=== PATIENT | male | born 1975 | race African-American/Black ===

== ENCOUNTER 2020-05-24 06:37 | Outpatient (CLI) | payer OTHER, MEDICAID, SELFPAY ==
--- NOTE | ~2020-05-24 | MR_ITS ---
EXAMINATION: MR thoracic spine wo con EXAM DATE: 05/24/2020 07:42 INDICATION: Cervical thoracic spondylosis. TECHNIQUE: Multi-sequential, multiplanar MR images of the thoracic spine were obtained without contra st. Sagittal T1, T2, T2 fat saturation, axial T2 weighted images reviewed. There is no prior study for comparison. FINDINGS: The vertebral bodies are aligned in the AP dimension. Vertebral body and disc heights are well-maintained. There are no suspicious marrow signal abnormalities. Paraspinal soft tissue is unrem arkable. The spinal cord signal intensity and intrinsic morphology is normal. Thoracic neural foramen and central canal widely patent. IMPRESSION: Unremarkable CT thoracic spine. Reviewed, dictated and finalized at location B.
== END 2020-05-24 06:38 | disposition home or self-care (01) ==
PROVIDERS: PCP Emergency Medicine; Visit Provider Emergency Medicine
DX: M47.893 Other spondylosis, cervicothoracic region (principal)
CPT/HCPCS: 72146

== ENCOUNTER 2020-06-29 12:12 | Emergency (ER) | payer MEDICAID, SELFPAY ==
[2020-06-29] VITALS (13 sets, daily range): BP systolic 122–149; BP diastolic 64–91; PULSE 57–70; RESP 12–20; TEMP 36.6; O2SAT 97–100
--- NOTE | ~2020-06-29 | CT_ITS ---
EXAMINATION: CT abdomen pelvis w con DATE: 06/29/2020 13:25 INDICATION: Abdominal pain. TECHNIQUE: Computed tomography (CT) of the abdomen and pelvis was performed with 100 mL Omnipaque 350 intravenous contrast. Automated exposure control and iterative reconstruction technique were employe d. The dose-length product was 630.01 mGy-cm. COMPARISON: None. FINDINGS: The visualized portions of the lung bases demonstrate mild atelectasis. Calcified right kayleen g nodules and calcified right hilar and mediastinal lymph nodes are consistent with old granulomatous disease. No pleural effusion. The heart size is normal. No pericardial effusion. The liver and gallb ladder are normal. Calcifications in the spleen are consistent with old granulomatous disease. The pa ncreas, adrenal glands, and kidneys are normal. There are no dilated loops of bowel. The appendix is normal. There are no pathologically enlarged lymph nodes. There is no free intraperitoneal fluid. The re is thoracolumbar dextroscoliosis and mild spondylosis. IMPRESSION: 1. No etiology for the patient's symptoms. Reviewed, dictated and finalized at location A.
--- NOTE | 2020-06-29 12:34 | ED.ABDPAIN ---
HPI - Abdominal Pain General Chief Complaint: Abdominal Pain Stated Complaint: abd pain Time Seen by Provider: 06/29/20 12:31 History of Present Illness HPI narrative: Pt c/o abd pain, epigastric, discomfort, non radiating, 07/15, started since . Denies n/v/d. Denies cp, sob, urinary symptoms or fever. Associated symptoms: denies other symptoms Related Data Allergies Allergy/AdvReac Type Severity Reaction Status Date / Time No Known Allergies Allergy Verified 06/29/20 12:27 Review of Systems Review of Systems: All systems reviewed & are unremarkable except as noted in HPI and below Constitutional: Constitutional: Denies body ache(s), Denies chills, Denies excessive sweating, Denies fatigue, Denies fever(s), Denies headache(s), Denies lethargy, Denies malaise, Denies weakness and Denies weight loss Eyes: Eyes: Denies blurry vision, Denies change in vision and Denies loss of vision ENT: Denies dizziness, Denies ear discharge, Denies headache(s), Denies lip swelling, Denies epistaxis, Denies nasal congestion, Denies neck pain, Denies throat swelling and Denies tongue swelling Cardiovascular: Cardiovascular: Denies chest pain, Denies chest pain at rest, Denies chest pain with activity, Denies diaphoresis, Denies rapid heart rate, Denies edema, Denies irregular heart rhythm, Denies lightheadedness, Denies palpitations, Denies dyspnea and Denies dyspnea on exertion Respiratory: Respiratory: Denies chest congestion, Denies cough, Denies hemoptysis, Denies dyspnea and Denies dyspnea on exertion Gastrointestinal: Gastrointestinal: Denies melena, Denies hematochezia, Denies diarrhea, Denies nausea, Denies vomiting and Denies hematemesis Musculoskeletal: Musculoskeletal: Denies abnormal gait, Denies deformity, Denies joint swelling, Denies limited range of motion, Denies neck pain and Denies numbness Neurologic: Denies Abnormal speech present, Denies abnormal gait, Denies confusion, Denies dizziness, Denies headache(s), Denies focal weakness, Denies loss of vision, Denies numbness, Denies Other visual disturbances, Denies Sensory deficit (Neuro) and Denies weakness Psychiatric: Psychiatric: Denies confusion, Denies depression, Denies auditory hallucinations, Denies homicidal ideation and Denies suicidal ideation Endocrine: Endocrine: Denies cold intolerance, Denies excessive sweating, Denies fatigue, Denies heat intolerance and Denies palpitations Hematologic/Lymphatic: Hematologic/Lymphatic: Denies easy bleeding and Denies easy bruising Allergic/Immunologic: Allergic/Immunologic: Denies lip swelling, Denies throat swelling and Denies tongue swelling Exam Const: General: cooperative, healthy appearing, comfortable, no acute distress, well developed, alert and awake; No confusion Orientation/consciousness: oriented to person, oriented to place, oriented to time, patient oriented x3 and No confusion Limitations: no limitations HENMT: Head: normal to inspection, normocephalic and atraumatic Ears: hearing grossly normal bilaterally, TM normal on the right and TM normal on the left General nose exam: Normal external nose present, Normal nares present and No nasal discharge present Face and sinus: normal facial exam Mouth: Yes Normal oral and palatal mucosa present, Yes lip normal, Yes tongue normal and Yes oropharynx normal Throat: posterior oropharynx normal, tonsils normal and uvula midline Eyes: General: appearance normal, both eyes and all related structures Pupils: Equal, round and reactive pupils present EOM: EOMs intact bilaterally Neck: Neck: normal visual inspection, full ROM, no lymphadenopathy and no meningeal signs Chest: Chest palpation & inspection: normal inspection of the chest Resp: Effort & Inspection: normal respiratory effort, able to speak in complete sentences, no respiratory distress and not tachypneic Auscultation: clear to auscultation bilaterally, no crackles, no rales, no rhonchi and no wheezes Cardio:
--- NOTE | 2020-06-29 12:36 | ECG_ITS ---
Measurements Intervals [place] Rate: 56 P: 37 [place]: 172 QRS: 30 QRSD: 95 T: -12 QT: 412 QTc: 400 Interpretive Statements SINUS BRADYCARDIA BORDERLINE ST-T WAVE ABNORMALITY- ANT/INF LEADS BORDERLINE ECG Electronically Signed On 06-29-2020 18:46:02 CDT by Fidencio Castle D.O.
[2020-06-29] MEDS: SODIUM CHLORIDE 0.9% IV 1,000 ML 999 ML IV CONT (12:50)
[2020-06-29 13:03] LABS: Basophils Absolute Auto 0.1 K/mm3 (0.0-0.1); Basophils Percent Auto 1.4 % (0.2-1.2); Eosinophils Percent Auto 0.6 % (0-4.4); Hematocrit 47.2 % (42.0-52.0); Hemoglobin 15.4 g/dL (14.0-18.0); Immature Granulocyte Absolute 0.05 K/mm3 (0.00-0.031); Immature Granulocyte Percent A 0.8 % (0-0.5); Lymphocytes Absolute Auto 2.19 K/mm3 (0.9-3.2); Lymphocytes Percent Auto 33.5 % (18.3-44.2); Mean Corpuscular HGB Conc 32.6 g/dl (32-36); Mean Corpuscular Hemoglobin 28.9 pg (26-34); Mean Corpuscular Volume 88.6 fl (80-100); Mean Platelet Volume 9.5 fl (7.4-10.4); Monocytes Absolute Auto 0.6 K/mm3 (0.1-0.6); Monocytes Percent Auto 8.6 % (2.6-8.5); Neutrophils Absolute Auto 3.6 K/mm3 (1.3-6.7); Neutrophils Percent Auto 55.1 % (45.5-73.1); Platelet Count Result 311 k/mm3 (150-375); Red Blood Count 5.33 M/mm3 (4.6-6.20); Red Cell Distribution Width 13.8 % (11.5-14.5); White Blood Count 6.5 K/mm3 (4.5-10.0)
[2020-06-29 13:07] LABS: Add Urine Microscopic? YES; Appearance Urine Clear (Clear); Bilirubin Urine Negative (Negative); Blood Urine Negative (Negative); Color Urine Yellow (Yellow); Glucose Urine UA 1+ mg/dL (Negative); Ketones Urine Negative (Negative); Leukocyte Esterase Ur Trace LEU/UL (Negative); Mucus Urine Rare /lpf; Nitrate Urine Negative (Negative); Protein Urine 1+ mg/dL (Negative); RBC Urine 0-2 /hpf (0-2); Squamous Epithelial Cell Urine Occasional /hpf (Few); Urobilinogen Urine Negative mg/dL (<2.0)
[2020-06-29 13:15] LABS: Alanine Aminotransferase 28 U/L (4-50); Albumin Level 4.6 g/dL (3.5-5.1); Alkaline Phosphatase 92 U/L (38-126); Anion Gap 7 mmol/L (8-16); Aspartate Amino Transferase 32 U/L (17-59); Bilirubin,Total 0.6 mg/dL (0.2-1.3); Blood Urea Nitrogen 15 mg/dL (9-20); Calcium 9.2 mg/dL (8.4-10.2); Carbon Dioxide 27 mmol/L (22-30); Chloride 103 mmol/L (98-107); Estimated CRCL calculation 68 ml/min; Estimated Glomerular Filt Rate > 60; Glucose 112 mg/dL (75-110); Lipase 223 U/L (23-300); Potassium 4.3 mmol/L (3.4-5.0); Sodium 137 mmol/L (137-145)
[2020-06-29] MEDS: FAMOTIDINE 20 MG TABLET 40 MG PO (14:42)
[2020-06-29] MEDS: BELLADONNA ALK/PHENOB ELIX 10 ML, MAG HYDROX/ALUMINUM HYD/SIMETH 30 ML, LIDOCAINE HCL 2... PO (14:42)
[2020-06-29] MEDS: KETOROLAC 30 MG/ML VIAL (*BKC) IV PUSH (14:43)
== END 2020-06-29 15:52 | disposition home or self-care (01) ==
PROVIDERS: Emergency Provider Emergency Medicine; PCP Emergency Medicine
DX: K29.00 Acute gastritis without bleeding (principal); R00.1 Bradycardia, unspecified; R94.31 Abnormal electrocardiogram [ECG] [EKG]
CPT/HCPCS: 36415; 74177; 80053; 81001; 83690; 85025; 87086; 93005; 96361; 96374; 99284; A9270; J1885; J7030; Q9967

== ENCOUNTER 2021-12-25 22:09 | Emergency (ER) | payer BC, SELFPAY ==
[2021-12-25] VITALS (12 sets, daily range): BP systolic 124–198; BP diastolic 94–118; PULSE 54–71; RESP 13–21; TEMP 36.8; O2SAT 96–98
--- NOTE | ~2021-12-25 | XR_ITS ---
EXAMINATION: XR chest 1V portable EXAM DATE: 12/25/2021 22:57 INDICATION: Midsternal Cp X 5 Days Feels Like Heart Is Jumping . TECHNIQUE: Portable AP frontal chest x-ray was obtained. Comparison is made to prior examination from 02/05/2017. FINDINGS: The lungs are clear. There are no pleural effusions. The cardiomediastinal silhouette is within normal limits. There is no pneumothorax suspected. The bones and soft tissues are unremarkab le. IMPRESSION: No acute cardiopulmonary findings. Reviewed, dictated and finalized at location G.
--- NOTE | 2021-12-25 22:10 | ECG_ITS ---
Measurements Intervals [place] Rate: 60 P: 45 [place]: 154 QRS: 60 QRSD: 93 T: 20 QT: 392 QTc: 393 Interpretive Statements SINUS RHYTHM NORMAL ECG COMPARED TO ECG 06/29/2020 12:56:11 SINUS RHYTHM NOW PRESENT Electronically Signed On 12-26-2021 13:57:27 CDT by Huey Garcia M.D.
[2021-12-25] MEDS: ASPIRIN 81 MG CHEWABLE TABLET 324 MG PO (22:22)
[2021-12-25 22:26] LABS: Basophils Absolute Auto 0.1 K/mm3 (0.0-0.1); Basophils Percent Auto 1.1 % (0.2-1.2); Eosinophils Absolute Auto 0.2 K/mm3 (0-0.3); Eosinophils Percent Auto 2.4 % (0-4.4); Hemoglobin 15.5 g/dL (14.0-18.0); Immature Granulocyte Absolute 0.03 K/mm3 (0.00-0.031); Immature Granulocyte Percent A 0.4 % (0-0.5); Lymphocytes Absolute Auto 2.33 K/mm3 (0.9-3.2); Lymphocytes Percent Auto 32.8 % (18.3-44.2); Mean Corpuscular HGB Conc 33.7 g/dl (32-36); Mean Corpuscular Hemoglobin 29.5 pg (26-34); Mean Corpuscular Volume 87.6 fl (80-100); Mean Platelet Volume 9.1 fl (7.4-10.4); Monocytes Absolute Auto 0.6 K/mm3 (0.1-0.6); Neutrophils Absolute Auto 3.9 K/mm3 (1.3-6.7); Neutrophils Percent Auto 54.3 % (45.5-73.1); Platelet Count Result 303 k/mm3 (150-375); Red Blood Count 5.25 M/mm3 (4.6-6.20); Red Cell Distribution Width 12.8 % (11.5-14.5); White Blood Count 7.1 K/mm3 (4.5-10.0)
[2021-12-25 22:36] LABS: Partial Thromboplastin Time 27.2 SECONDS (22.3-36.8); Prothrombin Time 12.7 Seconds (11.1-14.7)
--- NOTE | 2021-12-25 22:36 | ED.CHESTPAIN ---
HPI - Chest Pain General Chief Complaint: Chest Pain Stated Complaint: chest pain Time Seen by Provider: 12/25/21 22:16 Source: patient Mode of arrival: ambulatory Limitations: no limitations History of Present Illness HPI narrative: 46-year-old male presents today with complaints of intermittent chest pain that can radiate to the back over the last 3 to 4 days. Patient states the pain is to his sternum. Pain currently rated an 8 out of a 10. Patient states the pain can happen intermittently. Pain can happen when he is bent over tying his shoes and then he stands up, or when he walks around the block. Patient has noted nothing specific to aggravate the pain or alleviate the pain. Patient has tried [place] and ibuprofen to help without relief. Patient with history of hypertension currently not on medications. Patient denies any nausea, vomiting, pain radiating to jaw or down the arm, or diaphoresis. Patient states it feels like what ever is underneath his sternum is balled up in a knot. Patient has a history of epigastric issues and was on Pepcid at one time. Patient states this pain is not similar to what he has felt in the past. Related Data Allergies Allergy/AdvReac Type Severity Reaction Status Date / Time No Known Allergies Allergy Verified 06/29/20 12:27 Review of Systems Review of Systems: CONSTITUTIONAL: Denies fever, chills, or sweats. EYES: Denies visual changes, redness, or discharge. ENT: Denies rhinorrhea, congestion, sore throat, or otalgia. CARDIOVASCULAR: Intermittent chest pain RESPIRATORY: Shortness of breath with some activities denies cough or dyspnea. GASTROINTESTINAL: Denies abdominal pain, nausea, vomiting, or diarrhea. GENITOURINARY: Denies dysuria or hematuria. SKIN: Denies rash or itching. MUSCULOSKELETAL: Denies back pain, joint pain, or myalgia. NEUROLOGIC: Denies headache, numbness, dizziness, or weakness. PSYCHIATRIC: Denies anxiety or depression. Exam Narrative: GENERAL: Well-appearing, well-nourished, and in no acute distress. HEAD: Normocephalic, atraumatic. EYES: PERRLA and EOMI. ENT: Nares clear, no rhinorrhea or epistaxis. Mucous membranes moist. Oropharynx without tonsillar hypertrophy exudate or other lesions. Bilateral TMs pearly hodge nonbulging NECK: Supple. No adenopathy or masses. No carotid bruits or JVD CHEST: Tenderness with palpation to sternum. Clear to auscultation. No respiratory distress. No wheezes rales or rhonchi HEART: Regular rate and rhythm. No murmur heard. Normal peripheral pulses. ABDOMEN: Soft, nontender, nondistended, normal active bowel sounds. EXTREMITIES: Normal range of motion. No edema. SKIN: Warm, dry, no rash. NEURO: No focal deficits. Alert and oriented x3. PSYCH: Normal mood and affect. Course Course Emergency Course: 46-year-old male presents today with complaints of chest pain that has been intermittent over the last couple days. Upon arrival pain 8 out of 10 with blood pressure 198/118. Patient medicated with aspirin and nitro. After 2 sublingual nitros patient pain-free. Case discussed with Dr. Jeff and had plan for admission. Patient refusing admission at this time. Patient AOx4. Long discussion had with patient and about the consequences of leaving AMA. Patient aware leaving AMA could result in , debilitation, stroke, sexual dysfunction. Patient still refusing to be admitted. Patient aware he can return at any time to be seen. Reevaluation(s) Reevaluation #1: Pain decreased from 8/10 to 4/10 after nitro. Date: 12/25/21 Time: 23:05 Reevaluation #2: Patient currently pain free after 2nd nitro. Date: 12/25/21 Time: 23:42 Vital Signs Vital signs: Vital Signs Temperature 36.8 C 12/25/21 22:22 Pulse Rate 71 12/25/21 22:22 Respiratory Rate 18 12/25/21 22:22 Blood Pressure 198/118 H 12/25/21 22:22 Pulse Oximetry 98 12/25/21 22:22 Temperature 36.8 C 12/25/21 22:22 Pulse Rate 54 L 12/25/21 23:55 Res
[2021-12-25 22:37] LABS: Alanine Aminotransferase 26 U/L (4-50); Albumin Level 4.6 g/dL (3.5-5.1); Alkaline Phosphatase 77 U/L (38-126); Anion Gap 9 mmol/L (8-16); Aspartate Amino Transferase 44 U/L (17-59); Bilirubin,Total 1.2 mg/dL (0.2-1.3); Blood Urea Nitrogen 16 mg/dL (9-20); Calcium 8.6 mg/dL (8.4-10.2); Carbon Dioxide 26 mmol/L (22-30); Chloride 104 mmol/L (98-107); Estimated CRCL calculation 69 ml/min; Estimated Glomerular Filt Rate > 60; Glucose 90 mg/dL (65-110); Lipase 321 U/L (23-300); Potassium 3.9 mmol/L (3.4-5.0); Sodium 139 mmol/L (137-145)
[2021-12-25] MEDS: NITROGLYCERIN SL 0.4 MG TABLET SUBLINGUAL ×2 (22:48→23:27)
[2021-12-25 22:49] LABS: Troponin I < 0.012 ng/mL (0.000-0.034)
== END 2021-12-26 00:20 | disposition left against medical advice (07) ==
PROVIDERS: Emergency Medicine; Emergency Provider Nurse Practitioner Family; PCP Emergency Medicine
DX: R07.9 Chest pain, unspecified (principal)
CPT/HCPCS: 36415; 71045; 80053; 83690; 84484; 85025; 85610; 85730; 93005; 99284; A9270

== ENCOUNTER 2021-12-26 15:52 | Emergency (ER) | payer BC, SELFPAY ==
[2021-12-26] VITALS (11 sets, daily range): BP systolic 160–188; BP diastolic 107–114; PULSE 51–62; RESP 11–24; TEMP 36.2; O2SAT 99–100
--- NOTE | ~2021-12-26 | CT_ITS ---
EXAMINATION: CTA chest PE protocol EXAM DATE: 12/26/2021 18:55 INDICATION: Chest pain . TECHNIQUE: Spiral CTA of the chest (pulmonary arteries) was performed with 100 cc Omnipaque 350 intr avenous contrast injection. Images were acquired during the pulmonary arterial phase. Coronal maxi mum intensity projection 3D-reconstructions were created by the technologist on dedicated workstation . Axial, coronal and sagittal reformatted images were reviewed. The dose-length product (DLP) for t his examination was 446.44 mGy-cm. The exposure was tailored according to patient size (auto mA exp osure control), and iterative reconstruction (ASIR) was used as additional dose reduction technique. There is no prior study for comparison. FINDINGS: Pulmonary arteries are well opacified and without intraluminal filling defects. No thora cic aortic dissection. The lungs are clear. There are no pleural or pericardial effusions. Trach eobronchial tree is patent. There is no mediastinal, hilar or axillary lymphadenopathy. There is no pneumothorax. Heart normal in size. No evidence of coronary arterial calcification. Upper abd omen is unremarkable. There is thoracic spondylosis without osteoblastic or osteolytic lesions iden tified. IMPRESSION: 1. No acute cardiopulmonary findings. Reviewed, dictated and finalized at location G.
--- NOTE | 2021-12-26 16:22 | ECG_ITS ---
Measurements Intervals [place] Rate: 54 P: 40 ID: 154 QRS: 53 QRSD: 95 T: 35 QT: 426 QTc: 404 Interpretive Statements SINUS BRADYCARDIA POSSIBLE RIGHT VENTRICULAR CONDUCTION DELAY [RSR (QR) IN V1/V2] NONSPECIFIC T-WAVE ABNORMALITY ABNORMAL ECG Electronically Signed On 12-26-2021 17:59:17 CDT by Huey Garcia M.D.
[2021-12-26 18:46] LABS: Estimated CRCL calculation 66 ml/min; Estimated Glomerular Filt Rate > 60
[2021-12-26 18:54] LABS: Basophils Absolute Auto 0.1 K/mm3 (0.0-0.1); Eosinophils Absolute Auto 0.1 K/mm3 (0-0.3); Eosinophils Percent Auto 1.7 % (0-4.4); Hematocrit 49.5 % (42.0-52.0); Hemoglobin 16.8 g/dL (14.0-18.0); Immature Granulocyte Absolute 0.05 K/mm3 (0.00-0.031); Immature Granulocyte Percent A 0.7 % (0-0.5); Lymphocytes Absolute Auto 1.93 K/mm3 (0.9-3.2); Lymphocytes Percent Auto 27.7 % (18.3-44.2); Mean Corpuscular HGB Conc 33.9 g/dl (32-36); Mean Corpuscular Hemoglobin 29.9 pg (26-34); Mean Corpuscular Volume 88.2 fl (80-100); Mean Platelet Volume 9.4 fl (7.4-10.4); Monocytes Absolute Auto 0.6 K/mm3 (0.1-0.6); Monocytes Percent Auto 8.9 % (2.6-8.5); Neutrophils Absolute Auto 4.2 K/mm3 (1.3-6.7); Platelet Count Result 310 k/mm3 (150-375); Red Blood Count 5.61 M/mm3 (4.6-6.20); Red Cell Distribution Width 12.9 % (11.5-14.5)
[2021-12-26 19:09] LABS: Prothrombin Time 12.5 Seconds (11.1-14.7)
[2021-12-26 19:10] LABS: Partial Thromboplastin Time 28.1 SECONDS (22.3-36.8)
[2021-12-26 19:11] LABS: Alanine Aminotransferase 29 U/L (4-50); Albumin Level 4.9 g/dL (3.5-5.1); Alkaline Phosphatase 84 U/L (38-126); Anion Gap 8 mmol/L (8-16); Aspartate Amino Transferase 53 U/L (17-59); Bilirubin,Total 1.5 mg/dL (0.2-1.3); Blood Urea Nitrogen 17 mg/dL (9-20); Calcium 8.9 mg/dL (8.4-10.2); Carbon Dioxide 29 mmol/L (22-30); Chloride 102 mmol/L (98-107); Estimated CRCL calculation 71 ml/min; Estimated Glomerular Filt Rate > 60; Glucose 106 mg/dL (65-110); Lipase 274 U/L (23-300); Potassium 3.9 mmol/L (3.4-5.0); Sodium 139 mmol/L (137-145)
[2021-12-26 19:20] LABS: Troponin I < 0.012 ng/mL (0.000-0.034)
--- NOTE | 2021-12-26 19:57 | ED.GENADULT ---
HPI - General Adult General Chief complaint: Recheck/Abnormal Lab/Rx Stated complaint: cp/md requests ct pulmonary Time Seen by Provider: 12/26/21 18:34 Source: patient, family, RN notes reviewed and old records reviewed Mode of arrival: ambulatory Limitations: no limitations History of Present Illness HPI narrative: 46-year-old male presented emerge department for evaluation of substernal chest pain. Patient states the pain has been ongoing for the last few days and is intermittent short lasting. Patient was evaluated in the emergency department last night and had negative serial troponins. Patient was offered admission at that time but declined admission and preferred to have follow-up with his primary care physician today. patient did have follow-up with his primary care physician and in addition to ordering outpatient stress test the physician also wanted the patient to return to the emergency department to have a CTA of his chest. CTA was performed and CTA was negative. Patient is still having intermittent pain which he describes as a pressure behind his sternum and indicates his gastrium as the site of the pressure. Patient states the pressure is relieved every time he drinks a glass of water. Patient does have a history of acid reflux but does not take any medications for GERD or acid reflux. Patient's primary care physician did start the patient on omeprazole and metoprolol today. Related Data Allergies Allergy/AdvReac Type Severity Reaction Status Date / Time No Known Allergies Allergy Verified 06/29/20 12:27 Review of Systems Review of Systems: CONSTITUTIONAL: Denies fever, chills, or sweats. EYES: Denies visual changes, redness, or discharge. ENT: Denies rhinorrhea, congestion, sore throat, or otalgia. CARDIOVASCULAR: Substernal chest pain that is short lasting and resolves with drinking water RESPIRATORY: Denies cough or dyspnea. GASTROINTESTINAL: Denies abdominal pain, nausea, vomiting, or diarrhea. GENITOURINARY: Denies dysuria or hematuria. SKIN: Denies rash or itching. MUSCULOSKELETAL: Denies back pain, joint pain, or myalgia. NEUROLOGIC: Denies headache, numbness, or weakness. All systems reviewed & are unremarkable except as noted in HPI and below Exam Narrative: APPEARANCE: Well appearing, no pain, no distress, well-nourished. HEAD: normocephalic, atraumatic. EYES: PERRLA/EOMI, conjunctivae clear. THROAT: Pharynx clear, no exudate. NECK: Supple. No adenopathy, no masses. RESPIRATORY: Airway patent, respirations nonlabored. Clear to auscultation bilaterally, no rales, rhonchi, wheezing. CARDIOVASCULAR: Regular rate and rhythm without murmurs rubs or gallops. ABDOMINAL: Soft, nontender, nondistended, normal bowel sounds MUSCULOSKELETAL: Moves all extremities. Strength/ROM intact, No edema, No calf tenderness. NEURO: Alert. Cranial nerves II through XII intact. Grossly normal neuro exam SKIN: Warm, dry. Normal Color Course Course Emergency Course: Patient was updated on the results of his work-up including imaging and labs. Patient's troponin continues to be negative. EKG shows normal sinus rhythm with no evidence of acute STEMI. CT scan showed no evidence pulmonary embolism. Patient was started on omeprazole by his primary care physician. Patient was encouraged to continue to have follow-up with his primary care physician in addition to having follow-up with a GI physician. Patient was also advised to drink water and to try Maalox to help with the suspected esophageal spasm. All questions concerns were addressed. Patient was educated on reasons to return to the emergency department. Patient and family were comfortable with the plan for discharge and close follow-up. Patient was started on both metoprolol and omeprazole by his primary care physician. Patient's blood pressure was elevated in the emergency department the patient prefers to go home and take his home dose of metoprolol. Vital Signs Vital signs: Vit
== END 2021-12-26 20:30 | disposition home or self-care (01) ==
PROVIDERS: Emergency Provider Emergency Medicine; PCP Emergency Medicine
DX: R07.9 Chest pain, unspecified (principal)
CPT/HCPCS: 71275; 80053; 83690; 84484; 85025; 85610; 85730; 93005; 99284; Q9967

== ENCOUNTER 2022-01-03 08:56 | Outpatient (CLI) | payer BC, SELFPAY ==
--- NOTE | 2022-01-03 | EST_ITS ---
Patient Info Name: Michael Egan Age: 46 years : 1975 Gender: Male Ht: 73 in Wt: 210 lbs BSA: 2.23 m2 HR: 58 bpm BP: 148 / 104 mmHg Heart Rhythm: Sinus Rhythm Exam Date: 01/03/2022 9:11 AM Exam Location: [facility] Stress Patient Status: Outpatient Admit Date: 01/03/2022 Staff Ordering Physician: Horacio Sanchez MD Attending Provider: Horacio Sanchez MD Exercise Technologist: Francesca Smith CT Exercise Physician: Fidencio Castle DO Exam Type: CA stress test treadmill Study Info Indications R07.9 - Chest pain, unspecified A treadmill exercise stress test was performed. Summary 1. 1. Negative Noe exercise stress test for ischemic ST changes by ECG criteria. 2. 2. Good functional capacity, achieving 12 METs of workload. 3. 3. Baseline hypertension with hypertensive response to exercise. 4. 4. Appropriate HR response to exercise. 5. 5. Appropriate HR recovery at 1 minute post exercise. 6. 6. No imaging with stress testing. 7. 7. Patient informed of the above results. Protocol: Noe Stress ECG Details Stage: REST Duration (min): 2 min : 23 sec Speed (mph): 0.0 Grade (%): 0 HR (bpm): 57 SBP (mmHg): 148 DBP (mmHg): 104 METS: --- Stage: REST Duration (min): 8 min : 23 sec Speed (mph): 0.0 Grade (%): 0 HR (bpm): 58 SBP (mmHg): 157 DBP (mmHg): 105 METS: --- Stage: STAGE 1 Duration (min): 1 min : 0 sec Speed (mph): 1.7 Grade (%): 10 HR (bpm): 87 SBP (mmHg): 157 DBP (mmHg): 105 METS: --- Stage: STAGE 1 Duration (min): 2 min : 0 sec Speed (mph): 1.7 Grade (%): 10 HR (bpm): 103 SBP (mmHg): 157 DBP (mmHg): 105 METS: --- Stage: STAGE 1 Duration (min): 3 min : 0 sec Speed (mph): 1.7 Grade (%): 10 HR (bpm): 108 SBP (mmHg): 169 DBP (mmHg): 94 METS: --- Stage: STAGE 2 Duration (min): 1 min : 0 sec Speed (mph): 2.5 Grade (%): 12 HR (bpm): 113 SBP (mmHg): 169 DBP (mmHg): 94 METS: --- Stage: STAGE 2 Duration (min): 2 min : 0 sec Speed (mph): 2.5 Grade (%): 12 HR (bpm): 116 SBP (mmHg): 168 DBP (mmHg): 95 METS: --- Stage: STAGE 2 Duration (min): 3 min : 0 sec Speed (mph): 2.5 Grade (%): 12 HR (bpm): 117 SBP (mmHg): 168 DBP (mmHg): 95 METS: --- Stage: STAGE 3 Duration (min): 1 min : 0 sec Speed (mph): 3.4 Grade (%): 14 HR (bpm): 120 SBP (mmHg): 198 DBP (mmHg): 120 METS: --- Stage: STAGE 3 Duration (min): 2 min : 0 sec Speed (mph): 3.4 Grade (%): 14 HR (bpm): 124 SBP (mmHg): 198 DBP (mmHg): 120 METS: --- Stage: STAGE 3 Duration (min): 3 min : 0 sec Speed (mph): 3.4 Grade (%): 14 HR (bpm): 129 SBP (mmHg): 203 DBP (mmHg): 112 METS: --- Stage: STAGE 4 Duration (min): 1 min : 0 sec Speed (mph): 4.2 Grade (%): 16 HR (bpm): 135 SBP (mmHg):
== END 2022-01-03 08:57 | disposition home or self-care (01) ==
LOC: ANHCARD 08:58
PROVIDERS: PCP Emergency Medicine; Visit Provider Emergency Medicine
DX: R07.9 Chest pain, unspecified (principal)
CPT/HCPCS: 93017

== ENCOUNTER 2022-10-21 17:14 | Emergency (ER) | payer OTHER, MEDICAID, SELFPAY | END 2022-10-21 17:23 | disposition left against medical advice (07) | LOC: ANHED 18:12 | PROVIDERS: PCP Emergency Medicine | DX: Z53.21 Procedure and treatment not carried out due to patient leaving prior to being seen by health care provider (principal) | CPT/HCPCS: 99199 ==

== ENCOUNTER 2023-02-02 23:30 | Emergency (ER) | payer OTHER, SELFPAY ==
--- NOTE | ~2023-02-02 | CT_ITS ---
Noncontrast CT scan of the thoracic and lumbar spine CLINICAL HISTORY: Trauma TECHNIQUE: Axial noncontrast imaging of the thoracic and lumbar spine was performed. Sagittal and cor onal reformatted images were constructed. Dose reduction technique was used on this scan by utilizing automated exposure control and iterative reconstruction technique. The dose-length product (DLP) was 1518.44 mGy-cm. Thoracic spine findings: No fracture or subluxation identified. Vertebral bodies maintain normal heig ht and alignment. Intervertebral disc spaces are well preserved. No definite spinal canal stenosis or cord compression identified. Paravertebral soft tissues are unre markable. Calcified mediastinal and hilar lymph nodes are noted. Lumbar spine findings: No fracture or subluxation identified. Vertebral bodies maintain normal height and alignment. Intervertebral disc spaces are well preserved. There are mild facet joint degenerative changes throughout the lumbar spine. No definite disc bulge o r herniation evident. No definite spinal canal stenosis identified. Neural foramina appear preserved. Paravertebral soft tissues are unremarkable. IMPRESSION: No significant abnormality seen in the thoracic or lumbar spine. Reviewed, dictated and finalized at [facility].
--- NOTE | ~2023-02-02 | XR_ITS ---
Left Knee Technique: AP, lateral, and oblique views were obtained. Clinical History: Pain Findings: No fracture or dislocation is seen. Osseous alignment is anatomic. Joint spaces are preserv ed without degenerative or erosive change. Soft tissues are unremarkable. No joint effusion is seen. Impression: Unremarkable left knee radiographs. Reviewed, dictated and finalized at location . Impression: Unremarkable left knee radiographs.
--- NOTE | ~2023-02-02 | XR_ITS ---
Right Knee Technique: AP, lateral, and oblique views were obtained. Clinical History: Pain Findings: No fracture or dislocation is seen. Osseous alignment is anatomic. Joint spaces are preserv ed without degenerative or erosive change. Large joint effusion is seen. Impression: Large joint effusion, nonspecific. No fracture or dislocation seen. Reviewed, dictated and finalized at location . Impression: Large joint effusion, nonspecific. No fracture or dislocation seen.
--- NOTE | ~2023-02-02 | CT_ITS ---
Noncontrast CT scan of the cervical spine Technique: Multiple contiguous axial [address] images of the cervical spine were obtained and rec onstructed in 2D sagittal and coronal planes on the acquisition scanner. Dose reduction technique was used on this scan by utilizing automated exposure control, adjustment of the mA and/or kV according to patient size. Clinical History: Pain Findings: No fractures or dislocations. Unremarkable visualized bony structures. The intervertebral disc spaces are preserved. No prevertebral soft tissue swelling. Impression: No fracture or subluxation of the cervical spine. Reviewed, dictated and finalized at location M. Impression: No fracture or subluxation of the cervical spine.
--- NOTE | 2023-02-02 23:50 | PC.NURSE ---
Addendum entered by Nohemy Plascencia RN 02/03/23 00:13: Pt got a dose of Dilaudid for pain. Assisted pt in calming down, pt became more relaxed and was able to tolerate CT scan. Original Note: In CT pt. had a panic attack, this RN along with 2 others arrived and reassured pt
--- NOTE | 2023-02-02 23:52 | ED.FALL ---
HPI - Fall General Chief Complaint: Fall Stated Complaint: fell 15-20 feet off ladder, pain to right knee Time Seen by Provider: 02/02/23 23:35 History of Present Illness HPI Narrative: Patient is a 47-year-old male presenting after a fall off a ladder. Patient states that he was on a 15 foot ladder trying to fix his daughter's dryer vent. Something startled him and so he jumped and fell forward off of the ladder. States that he landed on his knees on the balcony. States that he had severe right ankle and right knee pain following the fall. He was unable to ambulate due to the pain in his knee. Denies striking his head or loss of consciousness. No neck pain. He does complain of some mid back pain. Denies numbness or weakness. Reports some mild soreness in his left knee. No chest or abdominal pain. No shortness of breath. Related Data Allergies Allergy/AdvReac Type Severity Reaction Status Date / Time No Known Allergies Allergy Verified 02/02/23 23:41 Review of Systems Review of Systems: All systems reviewed & are unremarkable except as noted in HPI and below Exam Narrative: GENERAL: Uncomfortable appearing secondary to pain, pleasant and cooperative HEAD: Normocephalic, atraumatic. EYES: PERRLA and EOMI. ENT: Nares clear, no rhinorrhea or epistaxis. Mucous membranes moist. NECK/BACK: Supple. C-collar in place, no midline cervical tenderness, there is midline thoracic tenderness, no midline lumbar tenderness CHEST: Clear to auscultation. No respiratory distress. HEART: Regular rate and rhythm. Normal peripheral pulses. ABDOMEN: Soft, nontender, nondistended EXTREMITIES: Right knee with circumferential edema and ecchymoses anteriorly, diffusely tender especially along the medial aspect, superficial abrasions on the right calf, tenderness of right heel and right Achilles tendon; distal pulses are 2+, no sensory deficits, distal ROM intact SKIN: Warm, dry, no rash. NEURO: No focal deficits. Alert and oriented x3. PSYCH: Normal mood and affect. Course Vital Signs Vital signs: Vital Signs Pulse Rate 68 02/03/23 00:45 Respiratory Rate 15 02/03/23 00:45 Blood Pressure 157/94 H 02/03/23 00:45 Pulse Oximetry 94 02/03/23 00:45 Pulse Rate 72 02/03/23 02:01 Respiratory Rate 14 02/03/23 02:01 Blood Pressure 147/91 H 02/03/23 02:01 Pulse Oximetry 98 02/03/23 02:01 MDM - Fall MDM Narrative Medical decision making narrative: Patient is a 47-year-old male presenting with back, knee, ankle pain following a fall off a ladder. Patient is hypertensive, otherwise vitals are within normal limits. Exam is remarkable for the above. CT cervical, thoracic, lumbar spine show no acute injuries. X-rays of the right knee and ankle show no acute osseous injuries. There is a large right knee joint effusion. X-ray of left knee shows no acute abnormalities. Discussed the work-up with the patient. Offered to drain the joint effusion for symptomatic relief but patient declines at this time. He would prefer conservative management with knee immobilizer, crutches, pain control. Advised orthopedic and PCP follow-up. Appropriate return precautions given. Patient and his voiced understanding and are agreeable with plan. Discharged in stable condition Differential Diagnosis Differential diagnosis: Likely other (fall, spine fracture, femur fracture, patellar fracture, tib/fib fracture, joint effusion) Critical Care Time Critical Care Time Critical Care Time: No Discharge Plan Discharge Clinical Impression: Traumatic effusion of knee joint, Fall from ladder Patient Disposition: Home, Self-Care Condition: Stable Instructions: Antibiotic Form, Knee Immobilizer (ED), Hemarthrosis (ED) Additional Instructions: Imaging today shows fluid in your right knee that is likely related to your fall. Please use the crutches and knee immobilizer as discussed. Please follow-up with your PCP as well as o
[2023-02-03] MEDS: HYDROmorphone HCL INJ (*CRX) 1 MG/ML SYR IV PUSH
[2023-02-03 00:45] VITALS: BP 157/94; PULSE 68; RESP 15; O2SAT 94
[2023-02-03 01:04] VITALS: BP 151/88; PULSE 78; RESP 14; O2SAT 96
[2023-02-03 01:30] VITALS: BP 144/84; PULSE 75; RESP 16; O2SAT 94
[2023-02-03 02:01] VITALS: BP 147/91; PULSE 72; RESP 14; O2SAT 98
[2023-02-03] MEDS: HYDROcodone/acetaminophen (*CRX) 5-325 MG TABLET 1 TAB PO (02:17)
== END 2023-02-03 02:33 | disposition home or self-care (01) ==
PROVIDERS: Emergency Provider Emergency Medicine; PCP Emergency Medicine
DX: M25.469 Effusion, unspecified knee (principal); W11.XXXA Fall on and from ladder, initial encounter
CPT/HCPCS: 72125; 72128; 72131; 73564; 73610; 73630; 96374; 99284; A9270; J1170; L0140

== ENCOUNTER 2023-07-30 16:57 | Outpatient (CLI) | payer OTHER, SELFPAY ==
--- NOTE | ~2023-07-30 | US_ITS ---
EXAMINATION: US renal BI DATE: 07/30/2023 17:34 INDICATION: ABNORMAL RENAL FUNCTION TEST TECHNIQUE: Multiple grayscale and Doppler ultrasound images of the kidneys were obtained. COMPARISON: CT abdomen pelvis 06/29/2020 FINDINGS: The right kidney measures 9.4 x 4.2 x 5.6 cm. The left kidney measures 9.9 x 6.4 x 4.0 cm. The kidney s demonstrate normal parenchymal echogenicity. There is no hydronephrosis. The bladder is normal. Kannan ateral ureteral jets present. IMPRESSION: Unremarkable renal sonogram findings. Reviewed, dictated and finalized at location K.
== END 2023-07-30 16:58 | disposition home or self-care (01) ==
LOC: ANHIMG 16:59
PROVIDERS: PCP Emergency Medicine; Visit Provider Internal Medicine Nephrology
DX: R94.4 Abnormal results of kidney function studies (principal)
CPT/HCPCS: 76775

== ENCOUNTER 2024-03-31 00:30 | Day surgery (SDC) | payer BC, MEDICAID, SELFPAY ==
[2024-03-17 10:40] VITALS: BMI 29.0
[2024-03-31 12:21] VITALS: BP 155/49; PULSE 57; RESP 18; TEMP 36.1; O2SAT 100
[2024-03-31] MEDS: LACTATED RINGERS 1,000 ML 150 ML IV CONT (12:33)
--- NOTE | 2024-03-31 13:26 | P.PNAN_ITS ---
Anes - Initial Pre Proc Eval Procedure: Operation Date: 03/31/24 13:30 Proposed Procedures p Esophagogastroduodenoscopy - Eric Seaman MD Date/Time: 03/31/24 13:26 Surgeon: Eric Seaman MD Pre Op Diagnosis: GERD Patient Data Age: 48 Gender: M Height: 1.85 m Weight: 94.8 kg Last Vital Signs Temp 36.1 C L 03/31/24 12:21 Pulse 57 L 03/31/24 12:21 Resp 18 03/31/24 12:21 BP 155/49 H 03/31/24 12:21 Pulse Ox 100 03/31/24 12:21 O2 Del Method Room Air 03/31/24 12:21 Allergies Allergy/AdvReac Type Severity Reaction Status Date / Time No Known Allergies Allergy Verified 03/31/24 12:18 Home Medications Medication Instructions Recorded Confirmed Type hydrocodone 5 mg-acetaminophen 325 1 tablet PO Q8H PRN pain (scale 02/03/23 03/17/24 Rx mg tablet score 7-10) #10 tabs metoprolol succinate 25 mg 100 mg PO DAILY 05/01/23 03/17/24 History tablet,extended release 24 hr amlodipine 5 mg tablet 10 mg PO DAILY 03/17/24 03/17/24 History losartan 25 mg tablet 25 mg PO DAILY 03/17/24 03/17/24 History Patient hx anesthesia problems: none Family hx anesthesia problems: none Results Review: All pre-operative results and documents have been reviewed as part of the pre- operative evaluation. [facility] Surgical History Surgical History History of ankle surgery right History of surgery on wrist left Family History Family History Father Esophageal cancer Social History Social History Smoking status: Never smoker Alcohol intake: current Drinks per week: 2 Substance use: current Substance use type: opiates Lack of Transportation: No Lack of Food: Never True Current Housing: I Have Housing Concerned About Future Housing: No Difficulty Paying Gas/Electric Bills: No Difficulty Paying for Meds: No Currently Unemployed: No Education: Associate Degree Difficulty w/ Childcare or Family Care: No Living arrangements: with family Occupation/Education: occupation 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 Informed Consent: The patient's anesthetic plan and its attendant risks and benefits were discussed with the patient/family/POA. Questions were solicited and answers p rovided to the satisfaction of the patient/family/POA.
--- NOTE | 2024-03-31 13:27 | PM.HPGS ---
History of Present Illness History of Present Illness Consent: Risks, benefits, and alternatives have been discussed and questions answered. Patient agrees to proceed with procedure. Chief complaint: GERD Narrative: Michael Egan is a 48 year old male with dysphagia to solids but resolved after his doctor prescribed antacid, never had egd Review of Systems Review of Systems: All systems reviewed & are unremarkable except as noted in HPI and below PMFSH Past Medical History Medical History (Updated 03/31/24 @ 13:30 by Eric Seaman MD) Dysphagia Surgical History Surgical History History of ankle surgery right History of surgery on wrist left Family History Family History Father Esophageal cancer Social History Social History Smoking status: Never smoker Alcohol intake: current Drinks per week: 2 Substance use: current Substance use type: opiates Lack of Transportation: No Lack of Food: Never True Current Housing: I Have Housing Concerned About Future Housing: No Difficulty Paying Gas/Electric Bills: No Difficulty Paying for Meds: No Currently Unemployed: No Education: Associate Degree Difficulty w/ Childcare or Family Care: No Living arrangements: with family Occupation/Education: occupation 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 Spiritual care concerns: No Meds Home Medications and Allergies Home Medications Medication Instructions Recorded Confirmed Type hydrocodone 5 mg-acetaminophen 325 1 tablet PO Q8H PRN pain (scale 02/03/23 03/17/24 Rx mg tablet score 7-10) #10 tabs metoprolol succinate 25 mg 100 mg PO DAILY 05/01/23 03/17/24 History tablet,extended release 24 hr amlodipine 5 mg tablet 10 mg PO DAILY 03/17/24 03/17/24 History losartan 25 mg tablet 25 mg PO DAILY 03/17/24 03/17/24 History Allergies Allergy/AdvReac Type Severity Reaction Status Date / Time No Known Allergies Allergy Verified 03/31/24 12:18 Vital Signs Vital Signs - 24 hr 03/31/24 12:21 Temperature 97 F L Pulse Rate 57 L Respiratory Rate 18 Blood Pressure 155/49 H Pulse Oximetry 100 Oxygen Delivery Room Air Exam Const: General: comfortable and no acute distress HENMT: Face/Nose/Sinus: Normal nares present Eyes: General: appearance normal, both eyes and all related structures Neck: Neck: no JVD Resp: Auscultation: clear to auscultation bilaterally Cardio: Rate: regular rate Rhythm: regular rhythm GI: Inspection: non-distended GI Palp: Yes Soft to palpation Skin: General skin exam: normal color Neuro: General: gait normal Speech: normal speech Extrem: General: normal to inspection Psych: Mental Status: mental status grossly normal Assessment and Plan Assessment and plan (1) Dysphagia: Code(s): R13.10 - Dysphagia, unspecified Status: Acute Assessment and Plan: egd with bx already feeling better
[2024-03-31] MEDS: BENZOCAINE (*SP) 60 ML SPRAY CAN (HURRICAINE) 1 SPRAY MUCOUS MEM (13:30)
[2024-03-31 13:39] VITALS: BP 123/83; PULSE 74; RESP 18; O2SAT 96
[2024-03-31 13:48] VITALS: BP 122/82; PULSE 73; RESP 18; O2SAT 97
[2024-03-31 13:55] VITALS: BP 138/67; PULSE 72; RESP 18; O2SAT 98
== END 2024-03-31 14:10 | disposition home or self-care (01) ==
PROVIDERS: PCP Emergency Medicine; Visit Provider Internal Medicine Gastroenterology
PROC: 0DJ08ZZ Inspection of Upper Intestinal Tract, Via Natural or Artificial Opening Endoscopic (ICD-10-PCS; CPT 43235; principal; 2024-03-31 13:30)
DX: K29.50 Unspecified chronic gastritis without bleeding (principal); K21.9 Gastro-esophageal reflux disease without esophagitis; Z79.891 Long term (current) use of opiate analgesic; Z98.890 Other specified postprocedural states; Z80.0 Family history of malignant neoplasm of digestive organs
CPT/HCPCS: 43239; 88305; J2704; J7120